=== PATIENT | male | born 1980 | race Caucasian/White ===

== ENCOUNTER 2020-09-26 16:12 | Emergency (ER) | payer OTHER, BC ==
[~2020-09-26] VITALS: Ht 152.4 cm; Wt 63.5 kg
[2020-09-26 16:29] VITALS: BP_SYST 115
[2020-09-26 18:44] VITALS: BP_SYST 115
== END 2020-09-26 18:45 | disposition home or self-care (01) ==
LOC: SED 16:12
DX: S82.831A Other fracture of upper and lower end of right fibula, initial encounter for closed fracture (principal); W22.8XXA Striking against or struck by other objects, initial encounter; Y93.89 Activity, other specified; Y92.89 Other specified places as the place of occurrence of the external cause; Y99.8 Other external cause status
CPT/HCPCS: 99284